=== PATIENT | female | born 1975 | race African-American/Black ===

== ENCOUNTER → 2022-01-19 | Outpatient (CLI) | payer BC ==
--- NOTE | 2022-01-19 19:58 | RAD ---
EXAMINATION: XR CHEST 2V CLINICAL HISTORY: Shortness of breath, cough, wheezing. EXAM DATE/TIME: 01/19/2022 6:14 PM COMPARISON: None FINDINGS: Lines, Tubes, and Devices: None. Cardiomediastinal Silhouette: Within normal limits. Lungs and Pleura: No evidence of focal airspace consolidation or pleural effusion. Pulmonary vasculat ure unremarkable. Bones and Soft Tissues: No acute osseous abnormality. IMPRESSION: No evidence of acute cardiopulmonary abnormality. Electronically signed by: Gaetano Srivastava DO (01/19/2022 7:56 PM) RAUL
== END ==
LOC: RAD 18:08
PROVIDERS: ATTEND Registered Nurse
DX: R06.2 Wheezing (principal)
CPT/HCPCS: 71046